=== PATIENT | male | born 1980 | race Caucasian/White ===

== ENCOUNTER → 2020-10-05 | Outpatient (CLI) | payer OTHER | LOC: EMI 08:46 | DX: S14.119A Complete lesion at unspecified level of cervical spinal cord, initial encounter (principal) | CPT/HCPCS: 72156; A9577 ==

== ENCOUNTER → 2020-12-28 | Outpatient (CLI) | payer OTHER | LOC: EXRD 12:46 | DX: R60.9 Edema, unspecified (principal) | CPT/HCPCS: 93970 ==

== ENCOUNTER → 2021-02-22 | Outpatient (CLI) | payer OTHER | LOC: EMI 11:02 | DX: M79.89 Other specified soft tissue disorders (principal); M10.9 Gout, unspecified; R15.9 Full incontinence of feces; R90.89 Other abnormal findings on diagnostic imaging of central nervous system; M50.30 Other cervical disc degeneration, unspecified cervical region | CPT/HCPCS: 72141 ==